=== PATIENT | male | born 2000 | race Caucasian/White ===

== ENCOUNTER 2025-03-13 16:37 | Emergency (ER) | payer MEDICARE, MEDICAID ==
[~2025-03-13] VITALS: Ht 167.6 cm; Wt 91.0 kg
[2025-03-13 16:46] VITALS: TEMP 36.7; O2SAT 98
[2025-03-13 17:31] LABS: BASOPHILS % 0.8 % (0.0-2.0); EOSINOPHILS % 1.8 % (0.0-5.0); HEMATOCRIT. 40.8 % (42.0-52.0); HEMOGLOBIN. 13.7 g/dL (14.0-18.0); LYMPHOCYTES % 22.5 % (20.0-50.0); MEAN PLATELET VOLUME 10.1 fl (7.4-10.4); MONOCYTES % 6.5 % (2.0-8.0); NEUTROPHILS % 68.4 % (40.0-76.0); PLATELET 190 x1000/uL (130-400); RED BLOOD CELL COUNT 4.66 mill/uL (4.7-6.1); RED CELL DISTRIBUTION WIDTH 15.1 % (11.6-14.6)
[2025-03-13 17:33] LABS: CREATININE 0.7 mg/dL (0.6-1.3); UREA NITROGEN BLOOD < 5 mg/dL (9-23)
[2025-03-13 17:35] LABS: ASPARTATE AMINOTRANSFERASE 30 IU/L (<34); BILIRUBIN DIRECT < 0.1 mg/dL (<=3.0); BILIRUBIN TOTAL 0.3 mg/dL (0.1-1.0); PROTEIN TOTAL 7.0 g/dL (6.0-8.3)
[2025-03-13] MEDS ORDERED: DIVALPROEX SODIUM 250MG ER TABLET PO ONE (17:45)
[2025-03-13] MEDS: DIVALPROEX SODIUM 250MG ER TABLET PO SCH (18:10)
[2025-03-13 19:35] VITALS: BP 124/74; PULSE 71; RESP 18; O2SAT 98
== END 2025-03-13 20:23 | disposition home or self-care (01) ==
LOC: ER 16:37 → CMPBEDREQ 03-14 07:21
DX: G40.909 Epilepsy, unspecified, not intractable, without status epilepticus (principal); Z91.040 Latex allergy status; Z88.6 Allergy status to analgesic agent; Z79.899 Other long term (current) drug therapy
CPT/HCPCS: 36415; 80048; 80076; 80320; 83735; 85025; 93005; 99284; G0480